=== PATIENT | male | born 2000 | race Caucasian/White ===

== ENCOUNTER 2020-05-15 18:00 | Outpatient (CLI) | payer OTHER ==
[2020-05-16 15:57] LABS: HIV AG/AB 4TH GEN NON-REACTIVE (NON-REACTIVE)
[2020-05-17 13:06] LABS: HSV 2 IGG TYPE SPECIFIC AB <0.90 index
== END 2020-05-15 18:01 | disposition home or self-care (01) ==
LOC: LAB 18:00
PROVIDERS: ATTEND Physician Assistant
DX: N48.1 Balanitis (principal)
CPT/HCPCS: 81599; 86592; 86695; 86696; 87389; 87491; 87591; 87661

== ENCOUNTER 2020-06-08 08:00 | Outpatient (CLI) | payer MEDICAID, OTHER ==
[2020-06-08 20:49] LABS: ALBUMIN 5.2 g/dL (3.2-5.5); ALBUMIN/GLOBULIN RATIO 1.6 (1.0-2.2); BILIRUBIN,TOTAL 1.3 mg/dL (0.2-1.0); CALCIUM 9.8 mg/dL (8.5-10.3); CREATININE 1.1 mg/dL (0.6-1.2); TOTAL PROTEIN 8.4 g/dL (6.7-8.2)
== END 2020-06-08 08:01 | disposition home or self-care (01) ==
LOC: LAB.N 08:00
PROVIDERS: ATTEND Family Medicine
DX: B35.6 Tinea cruris (principal)
CPT/HCPCS: 36415; 80053

== ENCOUNTER 2020-06-28 17:21 | Outpatient (CLI) | payer MEDICAID ==
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
--- NOTE | 2020-06-28 18:16 | XRAY Report ---
PROCEDURE: Chest 1 View X-Ray INDICATIONS: RIB PAIN, LEFT SIDED TECHNIQUE: One view of the chest was acquired. COMPARISON: None. FINDINGS: Surgical changes and devices: None. Lungs and pleura: No pleural effusions or pneumothorax. Lungs are clear. Mediastinum: Mediastinal contours appear normal. Heart size is normal. Bones and chest wall: No suspicious bony lesions. Overlying soft tissues appear unremarkable. IMPRESSION: No acute cardiopulmonary pathology. Reviewed by: Samson Smith MD on 06/28/2020 6:14 PM [facility] Approved by: Samson Smith MD on 06/28/2020 6:14 PM [facility] Station ID: [id number]
== END 2020-06-28 23:59 | disposition home or self-care (01) ==
LOC: DI.N 17:21
PROVIDERS: ATTEND Family Medicine
DX: R07.81 Pleurodynia (principal)

== ENCOUNTER 2020-07-10 08:00 | Outpatient (CLI) | payer MEDICAID | END 2020-07-10 08:01 | disposition home or self-care (01) | LOC: LAB.R 08:00 | PROVIDERS: ATTEND Physician Assistant | DX: N45.1 Epididymitis (principal) | CPT/HCPCS: 87086; 87491; 87591; 87661 ==

== ENCOUNTER 2020-07-10 08:00 | Outpatient (CLI) | payer MEDICAID | END 2020-07-10 08:01 | disposition home or self-care (01) | LOC: LAB.R 08:00 | PROVIDERS: ATTEND Physician Assistant | DX: N45.1 Epididymitis (principal) | CPT/HCPCS: 87086 ==

== ENCOUNTER 2020-08-02 19:18 | Outpatient (CLI) | payer MEDICAID ==
--- NOTE | 2020-08-03 09:10 | Ultrasound Report ---
PROCEDURE: Testicle INDICATIONS: L EPIDIYMITIS, L TESTICULAR PAIN TECHNIQUE: Real-time scanning was performed of the scrotum and testicles, with image documentation. Color and p ulse Doppler interrogation was performed of both testicles. COMPARISON: None. FINDINGS: Right: Testicle is normal in size at 5.3 x 2 0.7, 3.4 cm, and homogenous in echotexture. Epididymis is normal in overall size and morphology. A presumed sub-5 mm epididymal cyst/spermatocele. Small hy drocele. No varicoceles. Overlying scrotal skin is normal in thickness. Left: Testicle is normal in size at 5.4 x 2.6 x 3.0 cm, and homogeneous in echotexture. Epididymis is normal in overall size and morphology. A presumed sub-5 mm epididymal cyst/spermatocele. Small hyd rocele. No varicoceles. Overlying scrotal skin is normal in thickness. Incidentally noted small fat-containing left inguinal hernia with reducible appearance measuring 2.0 x 0.6 cm. The neck measures 5-6 mm Doppler: Color and pulse Doppler demonstrate normal and symmetric arterial flow in both testicles. IMPRESSION: Small bilateral hydroceles. Presumed sub-5 mm epididymal cysts/spermatoceles. Small fat-containing inguinal hernia on the left. Reviewed by: Torey Padilla MD on 08/03/2020 9:08 AM PST Approved by: Torey Padilla MD on 08/03/2020 9:08 AM PST Station ID: [id number]
== END 2020-08-02 19:19 | disposition home or self-care (01) ==
LOC: DI 19:18
PROVIDERS: ATTEND Physician Assistant
DX: N45.1 Epididymitis (principal); N50.812 Left testicular pain; N43.3 Hydrocele, unspecified; K40.90 Unilateral inguinal hernia, without obstruction or gangrene, not specified as recurrent

== ENCOUNTER 2020-09-20 17:51 | Outpatient (CLI) | payer MEDICAID ==
[2020-09-20 23:15] LABS: CHLAMYDIA TRACHOMATIS DNA NEGATIVE (NEGATIVE); NEISSERIA GONORRHOEAE DNA NEGATIVE (NEGATIVE)
[2020-09-22 07:26] LABS: HIV AG/AB 4TH GEN NON-REACTIVE (NON-REACTIVE)
[2020-09-22 12:07] LABS: HEPATITIS C ANTIBODY NON-REACTIVE (NON-REACTIVE)
== END 2020-09-20 23:59 | disposition home or self-care (01) ==
LOC: LAB.S 17:51
PROVIDERS: ATTEND Emergency Medicine
DX: Z11.3 Encounter for screening for infections with a predominantly sexual mode of transmission (principal)
CPT/HCPCS: 36415; 86592; 86803; 87389; 87491; 87591; 87661

== ENCOUNTER 2021-01-30 18:53 | Emergency (ER) | payer MEDICAID ==
[2021-01-30] MEDS ORDERED: BACITRACIN ZINC OINT 1 PACKET TOP STA (19:19)
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
[2021-01-30 19:53] VITALS: BP 118/58
== END 2021-01-30 19:57 | disposition home or self-care (01) ==
LOC: ED 18:53
DX: T25.212A Burn of second degree of left ankle, initial encounter (principal); T31.0 Burns involving less than 10% of body surface; X12.XXXA Contact with other hot fluids, initial encounter
CPT/HCPCS: 99281; 99282; A9270

== ENCOUNTER 2022-01-27 08:00 | Outpatient (CLI) | payer OTHER | END 2022-01-27 23:59 | disposition home or self-care (01) | LOC: LAB.N 08:00 | PROVIDERS: ATTEND Registered Nurse | DX: K14.8 Other diseases of tongue (principal) | CPT/HCPCS: 87070; 87252 ==

== ENCOUNTER 2022-10-24 19:20 | Outpatient (CLI) | payer OTHER, MEDICAID ==
[2022-10-29 13:11] LABS: GIARDIA LAMBLIA AG EIA Negative (Negative)
== END 2022-10-24 23:59 | disposition home or self-care (01) ==
LOC: LAB.N 19:20
PROVIDERS: ATTEND Registered Nurse
DX: R19.5 Other fecal abnormalities (principal)
CPT/HCPCS: 87045; 87046; 87177; 87329; 87427

== ENCOUNTER 2022-11-01 08:00 | Outpatient (CLI) | payer MEDICAID, OTHER ==
[2022-11-01 20:04] LABS: BASOPHILS % (AUTO) 0.5 %; EOSINOPHILS % (AUTO) 0.5 %; HCT - HEMATOCRIT 45.3 % (42.0-52.0); HGB - HEMOGLOBIN 15.8 g/dL (14.0-18.0); LYMPHOCYTES # (AUTO) 1.3 10^3/uL (1.5-3.5); LYMPHOCYTES % (AUTO) 16.8 %; MEAN CORPUSCULAR HEMOGLOBIN 30.7 pg (27.0-31.0); MEAN CORPUSCULAR HGB CONC 34.9 g/dL (32.0-36.0); MEAN PLATELET VOLUME 10.5 fL (7.4-11.4); MONOCYTES # (AUTO) 0.4 10^3/uL (0.0-1.0); MONOCYTES % (AUTO) 4.5 %; NEUTROPHILS % (AUTO) 77.4 %; PLT - PLATELET COUNT 268 10^3/uL (130-450); RED BLOOD COUNT 5.15 10^6/uL (4.70-6.10); RED CELL DISTRIBUTION WIDTH 12.2 % (12.0-15.0); WHITE BLOOD COUNT 7.7 x10^3/uL (4.8-10.8)
[2022-11-01 20:28] LABS: ALBUMIN 5.2 g/dL (3.2-5.5); ALBUMIN/GLOBULIN RATIO 1.5 (1.0-2.2); ALKALINE PHOSPHATASE 55 IU/L (42-121); ALT ALANINE AMINOTRANSFERASE 20 IU/L (10-60); AST ASPARTATE AMINOTRANSFERASE 19 IU/L (10-42); BILIRUBIN,TOTAL 1.9 mg/dL (0.2-1.0); BUN - BLOOD UREA NITROGEN 13 mg/dL (6-20); CALCIUM 9.6 mg/dL (8.5-10.3); CARBON DIOXIDE - CO2 25 mmol/L (21-32); CHLORIDE 104 mmol/L (101-111); CHOL/HDL RATIO 2.8 (<5.0); CHOLESTEROL 181 mg/dL; CREATININE 0.8 mg/dL (0.6-1.2); GFR - MDRD 120 (>89); GLUCOSE 88 mg/dL (70-100); HDL CHOLESTEROL 65 mg/dL; LDL CHOLESTEROL,CALCULATED 107 mg/dL; LDL/HDL RATIO 1.6 (<3.6); LIPASE 27 U/L (22-51); POTASSIUM 3.5 mmol/L (3.5-5.0); SODIUM 141 mmol/L (135-145); TOTAL PROTEIN 8.7 g/dL (6.7-8.2); TRIGLYCERIDES 45 mg/dL; VLDL CHOLESTEROL 9 mg/dL
[2022-11-01 20:36] LABS: THYROID STIMULATING HORMONE 0.85 uIU/mL (0.34-5.60)
[2022-11-01 20:49] LABS: CRP - C-REACTIVE PROTEIN < 1.0 mg/dL (0-1.0)
== END 2022-11-01 23:59 | disposition home or self-care (01) ==
LOC: LAB.N 08:00
PROVIDERS: ATTEND Registered Nurse
DX: R10.9 Unspecified abdominal pain (principal); R19.5 Other fecal abnormalities
CPT/HCPCS: 36415; 80053; 80061; 83690; 83721; 84443; 85025; 85651; 86140; 86364